=== PATIENT | male | born 1965 | race Caucasian/White ===

== ENCOUNTER 2017-09-16 22:38 | Emergency (ER) | payer SELFPAY ==
[~2017-09-16] VITALS: Ht 177.8 cm; Wt 90.7 kg
[2017-09-16 22:45] VITALS: Ht 177.8 cm; Wt 90.7 kg
[2017-09-16 23:47] LABS: BASOPHIL % 0.5 % (0-2); PLATELET COUNT 211 x10^3mcL (130-400)
[2017-09-17 00:04] LABS: ALBUMIN 3.5 g/dL (3.4-5.0); ALKALINE PHOSPHATASE 122 U/L (46-116); ALT/SGPT 26 U/L (16-63); AST/SGOT 31 U/L (15-37); BILIRUBIN TOTAL 0.91 mg/dL (0.20-1.00); CALCIUM 8.4 mg/dL (8.5-10.1); CHLORIDE SERUM 105 mmol/L (98-107); CHOLESTEROL 146 mg/dL (<200); GFR1 > 60 mL/min; GLUCOSE SERUM 120 mg/dL (74-106); SODIUM SERUM 144 mmol/L (136-145); TOTAL PROTEIN, SERUM 6.8 g/dL (6.4-8.2)
[2017-09-17 01:38] LABS: AMPHETAMINE QUAL UR POSITIVE (See below)
[2017-09-17 06:00] VITALS: BP 139/78
== END 2017-09-17 04:00 | disposition home or self-care (01) ==
LOC: ED 22:38
PROVIDERS: Specialist
DX: T67.5XXA Heat exhaustion, unspecified, initial encounter (principal); F15.20 Other stimulant dependence, uncomplicated; E86.0 Dehydration; I10 Essential (primary) hypertension; E87.6 Hypokalemia; E11.9 Type 2 diabetes mellitus without complications; Z59.0 Homelessness; X58.XXXA Exposure to other specified factors, initial encounter; Y93.89 Activity, other specified; Y92.89 Other specified places as the place of occurrence of the external cause; Y99.8 Other external cause status
CPT/HCPCS: 83880; G0480; J3490; J7030

== ENCOUNTER 2018-05-31 19:28 | Inpatient (IN) | payer MEDICAID ==
[~2018-05-31] VITALS: Ht 175.3 cm; Wt 89.8 kg
[2018-05-31 19:32] VITALS: Ht 175.3 cm; Wt 89.8 kg
[2018-05-31 20:11] LABS: BASOPHIL % 0.3 % (0-2); PLATELET COUNT 207 x10^3mcL (130-400); RED CELL DISTRIBUTION WIDTH 13.2 % (11.5-14.5)
[2018-05-31 20:25] LABS: CALCIUM 8.4 mg/dL (8.5-10.1); CARBON DIOXIDE 30.6 mmol/L (21-32); CHLORIDE SERUM 101 mmol/L (98-107); CREATININE SERUM 1.2 mg/dL (0.7-1.3); GFR1 > 60 mL/min; GLUCOSE SERUM 331 mg/dL (74-106); POTASSIUM SERUM 3.6 mmol/L (3.5-5.1); SODIUM SERUM 137 mmol/L (136-145)
[2018-05-31 20:30] LABS: ALBUMIN 3.7 g/dL (3.4-5.0); ALKALINE PHOSPHATASE 162 U/L (46-116); ALT/SGPT 24 U/L (16-63); AST/SGOT 23 U/L (15-37); BILIRUBIN TOTAL 0.6 mg/dL (0.20-1.00); CHOLESTEROL 189 mg/dL (<200); CHOLESTEROL/HDL RATIO 3.2; HDL CHOLESTEROL 59 mg/dL (40-60); LIPASE 142 IU/L (73-393); TOTAL PROTEIN, SERUM 8.1 g/dL (6.4-8.2); TRIGLYCERIDES 154 mg/dL (<150)
[2018-05-31 20:35] LABS: T3 TOTAL 0.98 ng/mL
[2018-05-31 20:37] LABS: FREE T4 0.94 ng/dL (0.76-1.46); FREE THYROXINE INDEX 2.1 ug/dL (1.4-4.5)
[2018-05-31 21:21] LABS: microscopic required? NO
[2018-05-31 21:27] LABS: UA SPECIFIC GRAVITY 1.015 (1.005-1.035); urine erythrocyte NEGATIVE (NEGATIVE)
[2018-05-31 21:37] LABS: AMPHETAMINE QUAL UR POSITIVE (See below)
[2018-05-31 23:43] LABS: MAGNESIUM 1.9 mg/dL (1.8-2.4); PHOSPHOROUS 3.3 mg/dL (2.5-4.9)
[2018-06-01] VITALS (9 sets, daily range): BP systolic 134–179; BP diastolic 76–105
[2018-06-01 07:16] LABS: BASOPHIL % 0.4 % (0-2); PLATELET COUNT 180 x10^3mcL (130-400); RED CELL DISTRIBUTION WIDTH 13.3 % (11.5-14.5)
[2018-06-01 07:38] LABS: CARBON DIOXIDE 28.3 mmol/L (21-32); CHLORIDE SERUM 105 mmol/L (98-107); CREATININE SERUM 0.9 mg/dL (0.7-1.3); GFR1 > 60 mL/min; GLUCOSE SERUM 193 mg/dL (74-106); PHOSPHOROUS 3.3 mg/dL (2.5-4.9); POTASSIUM SERUM 3.7 mmol/L (3.5-5.1); SODIUM SERUM 140 mmol/L (136-145)
[2018-06-02 02:49] VITALS: BP 166/91
== END 2018-06-02 06:10 | disposition left against medical advice (07) | DRG 135 ==
LOC: ED 19:28 → DU 23:09
PROVIDERS: Specialist; ADMIT Internal Medicine
DX: S22.22XA Fracture of body of sternum, initial encounter for closed fracture (principal); G92 Toxic encephalopathy; E11.65 Type 2 diabetes mellitus with hyperglycemia; V49.9XXA Car occupant (driver) (passenger) injured in unspecified traffic accident, initial encounter; I16.0 Hypertensive urgency; F15.10 Other stimulant abuse, uncomplicated; F12.10 Cannabis abuse, uncomplicated; E78.5 Hyperlipidemia, unspecified; Z68.28 Body mass index [BMI] 28.0-28.9, adult; Z79.84 Long term (current) use of oral hypoglycemic drugs
CPT/HCPCS: 82962; 83880; 84439; G0480; J0360; J1885; J2270; J2405; J3010; J3490; J7030; Q0092; Q9967